=== PATIENT | male | born 2005 | race Caucasian/White ===

== ENCOUNTER 2025-02-26 14:32 | Emergency (ER) | payer OTHER, SELFPAY ==
[2025-02-26 14:34] VITALS: BP 122/82; PULSE 84; TEMP 36.4; O2SAT 98; BMI 19.0
--- NOTE | 2025-02-26 14:43 | XR_ITS ---
[facility] [place] [id number] Patient Name: CASIE THOMASON MRN: [id number] date: 2005 Sex: M Assigned Patient Location: ER Current Patient Location: ER Accession/Order Number: [id number] Exam Date: 02/26/2025 14:52 Report Date: 02/26/2025 15:09 At the request of: RADHA PHILLIPS MD Procedure: XR elbow SHAKIR min 3v XR elbow SHAKIR min 3v 02/26/2025 2:58 PM SIGNS AND SYMPTOMS: ^Atraumatic pain, likely tendinitis PROTOCOL: Frontal, lateral, and oblique radiographs of the bilateral elbows COMPARISON: None FINDINGS: The joint spaces are preserved. There is no fracture or dislocation. No joint effusion. No significant soft tissue swelling. The medial and lateral epicondyles are within normal limits. XR/XR elbow SHAKIR min 3v IMPRESSION: No acute bony injury, soft tissue swelling, joint effusion, or significant degenerative change. Impression dictated by: Cleveland Kline M.D. 02/26/2025 3:09 PM Dictation Location: [place] [address] Electronically authenticated by: [id number] Y Date: 02/26/2025 15:09
--- NOTE | 2025-02-26 14:45 | ED.GENADUL1 ---
HPI HPI - General Adult General Chief complaint: Extremity Problem, Nontraumatic Stated complaint: UPPER EXTREMITY PAIN Time Seen by Provider: 02/26/25 14:39 Source: patient Mode of arrival: walk-in History of Present Illness HPI narrative: 19-year-old male presents for bilateral elbow pain. He has had this for about 2 months and there was no specific injury. He points to the localized area just distal to each olecranon. No pain in shoulder or wrist. Hurts more when he moves. Related Data Previous Rx's ?Medication ?Instructions ?Recorded ibuprofen 800 mg tablet 800 mg PO Q8H PRN pain #20 tabs 02/26/25 Allergies Allergy/AdvReac Type Severity Reaction Status Date / Time No Known Drug Allergies Allergy Verified 02/26/25 14:39 Review of Systems ROS Narrative A ten point review of systems is negative except as noted above. PFSH PFSH Social History Little interest or pleasure in doing things: not at all Feeling down, depressed, or hopeless: not at all Exam Narrative Exam Narrative: Nurses note and vital signs reviewed General:The patient appears well and in no apparent distress.Patient is resting comfortably on cart. Skin:Warm, dry, no pallor noted.There is no rash noted. Head:Normocephalic, atraumatic Eye: Normal conjunctiva, no drainage Ears, Nose, Mouth, and Throat: oral mucosa is moist. Nares patent. Cardiovascular:Regular Rate and Rhythm Respiratory:Patient is in no distress, no accessory muscle use GI:Normal bowel sounds, no tenderness to palpation, no masses appreciated.No rebound, guarding, or rigidity noted. Musculoskeletal: Both elbows are examined. There is no bruise rash or deformity. There is no swelling. He has palpable tenderness just distal to the olecranon bilaterally. This seems to reproduce his pain. Wrist has full range of motion. Radial pulse 2+ and fingers have full range of motion. Neurological:A&O, normal speech Psychiatric:Cooperative Constitutional Vital Signs, click to edit/add: Last Vital Signs Temp 97.6 F 02/26/25 14:34 Pulse 84 02/26/25 14:34 Resp 18 02/26/25 14:34 BP 122/82 02/26/25 14:34 Pulse Ox 98 02/26/25 14:34 O2 Del Method Room Air 02/26/25 14:34 Course Vital Signs Vital signs: Vital Signs Temperature 97.6 F 02/26/25 14:34 Pulse Rate 84 02/26/25 14:34 Respiratory Rate 18 02/26/25 14:34 Blood Pressure 122/82 02/26/25 14:34 Pulse Oximetry 98 02/26/25 14:34 Oxygen Delivery Method Room Air 02/26/25 14:34 Temperature 97.6 F 02/26/25 14:34 Pulse Rate 84 02/26/25 14:34 Respiratory Rate 18 02/26/25 14:34 Blood Pressure 122/82 02/26/25 14:34 Pulse Oximetry 98 02/26/25 14:34 Oxygen Delivery Method Room Air 02/26/25 14:34 Medical Decision Making MDM Narrative Medical decision making narrative: X-rays are negative. My clinical impression is that he has tendinitis and he was prescribed ibuprofen and referred to orthopedics. Treatment diagnosis and follow-up were discussed with the patient. Differential Diagnosis Differential Diagnosis: Muscle strain, tendinitis, arthritis Imaging Data Bilateral elbow x-ray: Radiologist's impression: ITS Impressions Elbow X-Ray 02/26/25 14:43 IMPRESSION: No acute bony injury, soft tissue swelling, joint effusion, or significant degenerative change. Impression dictated by: Cleveland Kline M.D. 02/26/2025 3:09 PM [facility] Electron[facility] authenticated by: [id number] Y Date: 02/26/2025 15:09 Discharge Plan Discharge Chief Complaint: Extremity Problem, Nontraumatic Clinical Impression: Tendinitis Patient Disposition: Home, Self-Care Time of Disposition Decision: 15:27 Condition: Good Mode of Transportation: Private Vehicle Prescriptions / Home Meds: New ibuprofen 800 mg tablet 800 mg PO Q8H PRN (Reason: pain) Qty: 20 0RF Print Language: Portuguese Instructions: Tendinitis (ED) Referrals: Júnior Shearer DO [Physician, Orthopedics] - 1 week
--- NOTE | 2025-02-26 14:54 | PC.NURSE ---
no redness, bruising or swelling to bilat forearms. skin intact and pt ROM wnl bilat arms and wrists.
== END 2025-02-26 15:41 | disposition home or self-care (01) ==
LOC: ER 15:35
PROVIDERS: Emergency Provider Emergency Medicine
DX: M77.8 Other enthesopathies, not elsewhere classified (principal)
CPT/HCPCS: 73080; 99283